=== PATIENT | female | born 1940 | race Caucasian/White ===

== ENCOUNTER 2016-09-03 16:28 | Inpatient (IN) | payer OTHER ==
[~2016-09-03] VITALS: Ht 165.1 cm; Wt 160.6 kg
[~2016-09-03 16:28] MED LIST: ALBU2.5V7 INH; LOVI40 SUBCUT
[2016-09-03] MEDS ORDERED: NACL 0.9% 1,000 ML IV SCH (16:39)
[2016-09-03 17:21] LABS: BASOPHILS # (AUTO) 0.2 K/uL (0.0-0.2); EOSINOPHILS % (AUTO) 0.1 % (0.0-4.0); HEMATOCRIT 43.8 % (36-48); HEMOGLOBIN 13.9 g/dL (12.0-16.0); LYMPHOCYTES # (AUTO) 1.3 K/uL (1.0-5.5); LYMPHOCYTES % (AUTO) 8.3 % (20.5-51.5); MEAN CORPUSCULAR HEMOGLOBIN 28 pg (27-31); MEAN CORPUSCULAR HGB CONC 32 % (32-36); MEAN CORPUSCULAR VOLUME 88 fL (79.0-98.0); MONOCYTES # (AUTO) 1.5 K/uL (0.0-1.0); MONOCYTES % (AUTO) 9.8 % (1.7-9.3); NEUTROPHILS # (AUTO) 12.2 K/uL (1.8-7.7); NEUTROPHILS % (AUTO) 80.8 % (40.0-70.0); PLATELET COUNT (AUTO) 245 K/uL (130-430); RED BLOOD CELL COUNT(AUTO) 4.99 MIL/uL (4.2-6.2); WHITE BLOOD COUNT (AUTO) 15.2 K/uL (4.8-10.8)
[2016-09-03 17:25] LABS: ANION GAP 4 (5-15); CALCIUM 9.2 mg/dL (8.4-11.0); CHLORIDE 105 mmol/L (98-107); CREATININE 0.99 mg/dL (0.55-1.30); GLUCOSE 112 mg/dL (70-99); POTASSIUM 4.3 mmol/L (3.5-5.1); SODIUM SERUM 141 mmol/L (136-145); UREA NITROGEN, BLOOD 24 mg/dL (8-21)
[2016-09-03 17:30] LABS: ALANINE AMINOTRANSFERASE 19 U/L (12-78); ALBUMIN 2.7 g/dL (3.4-4.8); ASPARTATE AMINOTRANSFERASE 21 U/L (10-37); INR 1.2 (0.8-1.2); PROTHROMBIN TIME 12.6 SECS (9.5-12.5); TOTAL BILIRUBIN 0.8 mg/dL (0.0-1.0); TOTAL PROTEIN, SERUM 6.9 g/dL (6.4-8.3)
[2016-09-03] MEDS ORDERED: cefTRIAXone 1 GM IVPB PREMIX 50 ML IV ONE (17:45)
[2016-09-03 18:29] LABS: BILIRUBIN,URINE NEGATIVE (NEGATIVE); BLOOD, URINE 3+ (NEGATIVE); COLOR,URINE YELLOW (YELLOW); GLUCOSE,URINE NEGATIVE (NEGATIVE); KETONES,URINE NEGATIVE (NEGATIVE); LEUKOCYTE ESTERASE ,URINE 3+ (NEGATIVE); NITRITE, URINE POSITIVE (NEGATIVE); PH,URINE 7.5 (5.0-8.0); PROTEIN URINE 2+ (NEGATIVE); UROBILINOGEN,URINE 0.2 (0.2-1.0)
[2016-09-03 18:37] LABS: CLARITY/URINE SLIGHTLY CLOUDY (CLEAR)
[2016-09-03 18:38] LABS: BACTERIA,URINE MODERATE /HPF (None Seen); MUCUS,URINE None Seen /LPF (None Seen); WBC,URINE >100 /HPF (0-3)
[2016-09-03] MEDS ORDERED: CARV6.2554 PO (19:16)
[2016-09-03 20:15] VITALS: BP_SYST 138
[2016-09-03] MEDS: 0.45% NACL 1,000 ML IV SCH (21:44)
[2016-09-03 22:30] VITALS: BP_SYST 135
[2016-09-03] MEDS ORDERED: ALBUTEROL SULFATE 0.083% 2.5 MG/3 ML VIAL.NEB INH PRN (23:00)
[2016-09-03] MEDS: ALBUTEROL SULFATE 0.083% 2.5 MG/3 ML VIAL.NEB INH SCH (23:17)
[2016-09-04 00:35] VITALS: BP_SYST 135
[2016-09-04 04:09] VITALS: BP_SYST 133
[2016-09-04 07:09] LABS: BASOPHILS # (AUTO) 0.2 K/uL (0.0-0.2); EOSINOPHILS % (AUTO) 0.2 % (0.0-4.0); HEMATOCRIT 37.8 % (36-48); HEMOGLOBIN 12.5 g/dL (12.0-16.0); LYMPHOCYTES # (AUTO) 1.6 K/uL (1.0-5.5); LYMPHOCYTES % (AUTO) 10.2 % (20.5-51.5); MEAN CORPUSCULAR HEMOGLOBIN 29 pg (27-31); MEAN CORPUSCULAR HGB CONC 33 % (32-36); MEAN CORPUSCULAR VOLUME 88 fL (79.0-98.0); MONOCYTES # (AUTO) 1.3 K/uL (0.0-1.0); MONOCYTES % (AUTO) 8.6 % (1.7-9.3); NEUTROPHILS # (AUTO) 12.2 K/uL (1.8-7.7); PLATELET COUNT (AUTO) 239 K/uL (130-430); RED BLOOD CELL COUNT(AUTO) 4.32 MIL/uL (4.2-6.2); RED CELL DISTRIBUTION WIDTH 16.2 % (9.0-15.0); WHITE BLOOD COUNT (AUTO) 15.4 K/uL (4.8-10.8)
[2016-09-04 07:29] LABS: ALANINE AMINOTRANSFERASE 20 U/L (12-78); ALBUMIN 2.5 g/dL (3.4-4.8); ANION GAP 8 (5-15); ASPARTATE AMINOTRANSFERASE 25 U/L (10-37); CALCIUM 8.2 mg/dL (8.4-11.0); CHLORIDE 104 mmol/L (98-107); CREATININE 0.83 mg/dL (0.55-1.30); GLUCOSE 102 mg/dL (70-99); SODIUM SERUM 140 mmol/L (136-145); TOTAL BILIRUBIN 0.8 mg/dL (0.0-1.0); TOTAL PROTEIN, SERUM 5.7 g/dL (6.4-8.3); UREA NITROGEN, BLOOD 21 mg/dL (8-21)
[2016-09-04] MEDS: ALBUTEROL SULFATE 0.083% 2.5 MG/3 ML VIAL.NEB INH SCH ×3 (07:39→23:03)
[2016-09-04 07:55] VITALS: BP_SYST 103
[2016-09-04] MEDS: ENOXAPARIN SODIUM 40 MG/0.4 ML SYRINGE SUBCUT SCH (08:16)
[2016-09-04] MEDS: cefTRIAXone 1 GM IVPB PREMIX 50 ML IV SCH (08:50)
[2016-09-04 12:29] VITALS: BP_SYST 116
[2016-09-04] MEDS: ACETAMINOPHEN 325 MG TABLET PO PRN (13:46)
[2016-09-04] MEDS: 0.45% NACL 1,000 ML IV SCH (17:38)
[2016-09-04 19:25] VITALS: BP_SYST 122
[2016-09-05 00:40] VITALS: BP_SYST 139
[2016-09-05 05:01] VITALS: BP_SYST 122
[2016-09-05 07:06] LABS: ANION GAP 1 (5-15); CALCIUM 8.8 mg/dL (8.4-11.0); CHLORIDE 105 mmol/L (98-107); CREATININE 0.89 mg/dL (0.55-1.30); GLUCOSE 117 mg/dL (70-99); POTASSIUM 4.6 mmol/L (3.5-5.1); SODIUM SERUM 140 mmol/L (136-145); UREA NITROGEN, BLOOD 18 mg/dL (8-21)
[2016-09-05 08:00] VITALS: BP_SYST 116
[2016-09-05 08:01] LABS: HEMATOCRIT 41.4 % (36-48); HEMOGLOBIN 13.6 g/dL (12.0-16.0); MEAN CORPUSCULAR HEMOGLOBIN 29 pg (27-31); MEAN CORPUSCULAR HGB CONC 33 % (32-36); MEAN CORPUSCULAR VOLUME 88 fL (79.0-98.0); PLATELET COUNT (AUTO) 276 K/uL (130-430); RED BLOOD CELL COUNT(AUTO) 4.69 MIL/uL (4.2-6.2); RED CELL DISTRIBUTION WIDTH 16.2 % (9.0-15.0)
[2016-09-05 08:13] LABS: WHITE BLOOD COUNT (AUTO) 14.4 K/uL (4.8-10.8)
[2016-09-05] MEDS: ALBUTEROL SULFATE 0.083% 2.5 MG/3 ML VIAL.NEB INH SCH ×3 (08:29→23:00)
[2016-09-05] MEDS: ENOXAPARIN SODIUM 40 MG/0.4 ML SYRINGE SUBCUT SCH (08:31)
[2016-09-05] MEDS: cefTRIAXone 1 GM IVPB PREMIX 50 ML IV SCH (08:33)
[2016-09-05] MEDS ORDERED: FUROSEMIDE 40 MG TABLET PO ONE (10:00)
[2016-09-05 10:40] LABS: ATYPICAL LYMPHOCYTES % 0 % (0-0); BAND % (MANUAL) 10 % (0-6); BASOPHILS % (MANUAL) 0 % (0-2); EOSINOPHILS % (MANUAL) 0 % (0-7); LYMPHOCYTES % (MANUAL) 14 % (20-46); MONOCYTES % (MANUAL) 6 % (0-11)
[2016-09-05] MEDS: CIPROFLOXACIN HCL 0.3% EYE DRP 2.5 ML DROPS OP SCH ×4 (12:10→23:00)
[2016-09-05 12:22] VITALS: BP_SYST 160
[2016-09-05 16:45] VITALS: BP_SYST 136
[2016-09-05 23:04] VITALS: BP_SYST 142
[2016-09-06] VITALS (7 sets, daily range): BP systolic 114–176
[2016-09-06] MEDS: CIPROFLOXACIN HCL 0.3% EYE DRP 2.5 ML DROPS OP SCH ×6 (03:00→23:40)
[2016-09-06 07:17] LABS: HEMATOCRIT 43.2 % (36-48); HEMOGLOBIN 13.9 g/dL (12.0-16.0); MEAN CORPUSCULAR HEMOGLOBIN 28 pg (27-31); MEAN CORPUSCULAR HGB CONC 32 % (32-36); MEAN CORPUSCULAR VOLUME 88 fL (79.0-98.0); PLATELET COUNT (AUTO) 298 K/uL (130-430); RED CELL DISTRIBUTION WIDTH 16.3 % (9.0-15.0); WHITE BLOOD COUNT (AUTO) 14.1 K/uL (4.8-10.8)
[2016-09-06 07:20] LABS: ANION GAP 4 (5-15); CALCIUM 8.9 mg/dL (8.4-11.0); CHLORIDE 101 mmol/L (98-107); GLUCOSE 120 mg/dL (70-99); POTASSIUM 3.7 mmol/L (3.5-5.1); SODIUM SERUM 140 mmol/L (136-145); UREA NITROGEN, BLOOD 17 mg/dL (8-21)
[2016-09-06] MEDS: ALBUTEROL SULFATE 0.083% 2.5 MG/3 ML VIAL.NEB INH SCH ×3 (07:20→23:22)
[2016-09-06] MEDS ORDERED: FUROSEMIDE 40 MG TABLET PO SCH (09:00)
[2016-09-06 09:35] LABS: BAND % (MANUAL) 4 % (0-6); LYMPHOCYTES % (MANUAL) 12 % (20-46)
[2016-09-06 09:36] LABS: ATYPICAL LYMPHOCYTES % 0 % (0-0); BASOPHILS % (MANUAL) 0 % (0-2); EOSINOPHILS % (MANUAL) 0 % (0-7); MONOCYTES % (MANUAL) 8 % (0-11)
[2016-09-06] MEDS: cefTRIAXone 1 GM IVPB PREMIX 50 ML IV SCH (09:57)
[2016-09-06] MEDS: ENOXAPARIN SODIUM 40 MG/0.4 ML SYRINGE SUBCUT SCH (09:58)
[2016-09-06] MEDS ORDERED: metroNIDAZOLE 500 MG TABLET PO SCH (11:15)
[2016-09-06] MEDS ORDERED: metroNIDAZOLE 500 MG TABLET PO ONE (11:15)
[2016-09-06] MEDS ORDERED: SULFAMETHOXAZOLE/TRIMETHOPR DS 1 TABLET PO ONE (11:30)
[2016-09-06] MEDS: metroNIDAZOLE 500 MG TABLET PO SCH ×2 (17:41→23:40)
[2016-09-06] MEDS: SULFAMETHOXAZOLE/TRIMETHOPR DS 1 TABLET PO SCH (20:54)
[2016-09-07 00:01] VITALS: BP_SYST 139
[2016-09-07] MEDS: CIPROFLOXACIN HCL 0.3% EYE DRP 2.5 ML DROPS OP SCH ×6 (02:42→22:13)
[2016-09-07 04:12] VITALS: BP_SYST 157
[2016-09-07] MEDS: metroNIDAZOLE 500 MG TABLET PO SCH ×3 (06:10→18:01)
[2016-09-07 07:00] LABS: ANION GAP 0 (5-15); CALCIUM 8.7 mg/dL (8.4-11.0); CHLORIDE 99 mmol/L (98-107); CREATININE 0.73 mg/dL (0.55-1.30); GLUCOSE 128 mg/dL (70-99); POTASSIUM 3.6 mmol/L (3.5-5.1); SODIUM SERUM 139 mmol/L (136-145); UREA NITROGEN, BLOOD 14 mg/dL (8-21)
[2016-09-07 07:05] LABS: BASOPHILS # (AUTO) 0.1 K/uL (0.0-0.2); BASOPHILS % (AUTO) 1.1 % (0.0-2.0); EOSINOPHILS # (AUTO) 0.1 K/uL (0.0-0.4); EOSINOPHILS % (AUTO) 0.7 % (0.0-4.0); HEMATOCRIT 43.8 % (36-48); HEMOGLOBIN 14.1 g/dL (12.0-16.0); LYMPHOCYTES % (AUTO) 15.3 % (20.5-51.5); MEAN CORPUSCULAR HEMOGLOBIN 29 pg (27-31); MEAN CORPUSCULAR HGB CONC 32 % (32-36); MEAN CORPUSCULAR VOLUME 89 fL (79.0-98.0); MONOCYTES % (AUTO) 7.6 % (1.7-9.3); NEUTROPHILS # (AUTO) 9.9 K/uL (1.8-7.7); NEUTROPHILS % (AUTO) 75.3 % (40.0-70.0); PLATELET COUNT (AUTO) 368 K/uL (130-430); RED BLOOD CELL COUNT(AUTO) 4.93 MIL/uL (4.2-6.2); RED CELL DISTRIBUTION WIDTH 16.2 % (9.0-15.0); WHITE BLOOD COUNT (AUTO) 13.1 K/uL (4.8-10.8)
[2016-09-07] MEDS: ALBUTEROL SULFATE 0.083% 2.5 MG/3 ML VIAL.NEB INH SCH ×3 (07:51→23:50)
[2016-09-07 08:15] VITALS: BP_SYST 130
[2016-09-07] MEDS: SULFAMETHOXAZOLE/TRIMETHOPR DS 1 TABLET PO SCH ×2 (08:50→22:11)
[2016-09-07] MEDS: ENOXAPARIN SODIUM 40 MG/0.4 ML SYRINGE SUBCUT SCH (08:50)
[2016-09-07] MEDS ORDERED: CARVEDILOL 6.25 MG TABLET (COREG) PO ONE (11:45)
[2016-09-07 12:00] VITALS: BP_SYST 120
[2016-09-07 16:00] VITALS: BP_SYST 131
[2016-09-07 19:15] VITALS: BP_SYST 135
[2016-09-07] MEDS: CARVEDILOL 6.25 MG TABLET (COREG) PO SCH (22:11)
[2016-09-08] VITALS (7 sets, daily range): BP systolic 106–137
[2016-09-08] MEDS: metroNIDAZOLE 500 MG TABLET PO SCH ×4 (00:10→18:42)
[2016-09-08] MEDS: CIPROFLOXACIN HCL 0.3% EYE DRP 2.5 ML DROPS OP SCH ×6 (03:13→23:00)
[2016-09-08 07:36] LABS: BASOPHILS # (AUTO) 0.1 K/uL (0.0-0.2); EOSINOPHILS # (AUTO) 0.2 K/uL (0.0-0.4); EOSINOPHILS % (AUTO) 1.7 % (0.0-4.0); HEMOGLOBIN 13.2 g/dL (12.0-16.0); LYMPHOCYTES # (AUTO) 1.9 K/uL (1.0-5.5); LYMPHOCYTES % (AUTO) 16.3 % (20.5-51.5); MEAN CORPUSCULAR HEMOGLOBIN 28 pg (27-31); MEAN CORPUSCULAR HGB CONC 32 % (32-36); MEAN CORPUSCULAR VOLUME 88 fL (79.0-98.0); MONOCYTES % (AUTO) 8.9 % (1.7-9.3); NEUTROPHILS # (AUTO) 8.3 K/uL (1.8-7.7); NEUTROPHILS % (AUTO) 72.1 % (40.0-70.0); PLATELET COUNT (AUTO) 313 K/uL (130-430); RED BLOOD CELL COUNT(AUTO) 4.65 MIL/uL (4.2-6.2); WHITE BLOOD COUNT (AUTO) 11.5 K/uL (4.8-10.8)
[2016-09-08 07:41] LABS: CALCIUM 8.9 mg/dL (8.4-11.0); CREATININE 0.79 mg/dL (0.55-1.30); GLUCOSE 107 mg/dL (70-99); UREA NITROGEN, BLOOD 15 mg/dL (8-21)
[2016-09-08 08:07] LABS: CHLORIDE 101 mmol/L (98-107); POTASSIUM 3.4 mmol/L (3.5-5.1); SODIUM SERUM 139 mmol/L (136-145)
[2016-09-08 08:08] LABS: ANION GAP < 3 (5-15)
[2016-09-08] MEDS: ALBUTEROL SULFATE 0.083% 2.5 MG/3 ML VIAL.NEB INH SCH (08:08)
[2016-09-08] MEDS: ENOXAPARIN SODIUM 40 MG/0.4 ML SYRINGE SUBCUT SCH (09:41)
[2016-09-08] MEDS: SULFAMETHOXAZOLE/TRIMETHOPR DS 1 TABLET PO SCH ×2 (09:42→20:53)
[2016-09-08] MEDS: CARVEDILOL 6.25 MG TABLET (COREG) PO SCH ×2 (09:43→20:56)
[2016-09-08] MEDS: IPRATROPIUM/ALBUTEROL SULFATE 3 ML AMPUL.NEB INH SCH ×2 (15:47→23:00)
[2016-09-09] MEDS: IPRATROPIUM/ALBUTEROL SULFATE 3 ML AMPUL.NEB INH SCH ×3 (00:13→21:32)
[2016-09-09] MEDS: metroNIDAZOLE 500 MG TABLET PO SCH ×4 (00:14→17:59)
[2016-09-09] MEDS: CIPROFLOXACIN HCL 0.3% EYE DRP 2.5 ML DROPS OP SCH ×6 (02:38→23:41)
[2016-09-09 04:10] VITALS: BP_SYST 137
[2016-09-09 07:07] LABS: BASOPHILS # (AUTO) 0.1 K/uL (0.0-0.2); BASOPHILS % (AUTO) 1.1 % (0.0-2.0); EOSINOPHILS # (AUTO) 0.1 K/uL (0.0-0.4); HEMATOCRIT 43.8 % (36-48); HEMOGLOBIN 13.7 g/dL (12.0-16.0); LYMPHOCYTES # (AUTO) 1.5 K/uL (1.0-5.5); MEAN CORPUSCULAR HEMOGLOBIN 28 pg (27-31); MEAN CORPUSCULAR HGB CONC 31 % (32-36); MEAN CORPUSCULAR VOLUME 89 fL (79.0-98.0); MONOCYTES # (AUTO) 0.8 K/uL (0.0-1.0); MONOCYTES % (AUTO) 7.6 % (1.7-9.3); NEUTROPHILS # (AUTO) 7.8 K/uL (1.8-7.7); NEUTROPHILS % (AUTO) 75.3 % (40.0-70.0); PLATELET COUNT (AUTO) 319 K/uL (130-430); RED CELL DISTRIBUTION WIDTH 16.2 % (9.0-15.0); WHITE BLOOD COUNT (AUTO) 10.3 K/uL (4.8-10.8)
[2016-09-09 07:30] LABS: ALBUMIN 2.3 g/dL (3.4-4.8); ASPARTATE AMINOTRANSFERASE 26 U/L (10-37); CHLORIDE 100 mmol/L (98-107); CREATININE 1.33 mg/dL (0.55-1.30); POTASSIUM 4.6 mmol/L (3.5-5.1); SODIUM SERUM 139 mmol/L (136-145); TOTAL BILIRUBIN 1.8 mg/dL (0.0-1.0)
[2016-09-09 08:00] VITALS: BP_SYST 119
[2016-09-09 08:38] LABS: CALCIUM 9.2 mg/dL (8.4-11.0); GLUCOSE 118 mg/dL (70-99); UREA NITROGEN, BLOOD 16 mg/dL (8-21)
[2016-09-09 08:40] LABS: ANION GAP < 3 (5-15)
[2016-09-09 09:28] LABS: ALANINE AMINOTRANSFERASE 21 U/L (12-78); TOTAL PROTEIN, SERUM 6.2 g/dL (6.4-8.3)
[2016-09-09] MEDS: ENOXAPARIN SODIUM 40 MG/0.4 ML SYRINGE SUBCUT SCH (09:35)
[2016-09-09] MEDS: CARVEDILOL 6.25 MG TABLET (COREG) PO SCH ×2 (09:36→20:06)
[2016-09-09] MEDS: SULFAMETHOXAZOLE/TRIMETHOPR DS 1 TABLET PO SCH ×2 (09:36→20:06)
[2016-09-09 11:29] VITALS: BP_SYST 125
[2016-09-09 12:25] VITALS: BP_SYST 125
[2016-09-09 15:26] VITALS: BP_SYST 124
[2016-09-09 20:00] VITALS: BP_SYST 138
[2016-09-10] MEDS: metroNIDAZOLE 500 MG TABLET PO SCH ×5 (00:07→23:15)
[2016-09-10 00:30] VITALS: BP_SYST 124
[2016-09-10] MEDS: IPRATROPIUM/ALBUTEROL SULFATE 3 ML AMPUL.NEB INH SCH ×4 (01:22→19:50)
[2016-09-10] MEDS: CIPROFLOXACIN HCL 0.3% EYE DRP 2.5 ML DROPS OP SCH ×6 (03:27→23:16)
[2016-09-10 04:00] VITALS: BP_SYST 126; BP_SYST 173
[2016-09-10 07:35] LABS: EOSINOPHILS # (AUTO) 0.1 K/uL (0.0-0.4); EOSINOPHILS % (AUTO) 1.2 % (0.0-4.0); HEMATOCRIT 44.3 % (36-48); HEMOGLOBIN 13.9 g/dL (12.0-16.0); LYMPHOCYTES # (AUTO) 1.4 K/uL (1.0-5.5); LYMPHOCYTES % (AUTO) 16.3 % (20.5-51.5); MEAN CORPUSCULAR HEMOGLOBIN 28 pg (27-31); MEAN CORPUSCULAR HGB CONC 31 % (32-36); MEAN CORPUSCULAR VOLUME 89 fL (79.0-98.0); MONOCYTES # (AUTO) 0.6 K/uL (0.0-1.0); NEUTROPHILS # (AUTO) 6.7 K/uL (1.8-7.7); NEUTROPHILS % (AUTO) 75.5 % (40.0-70.0); PLATELET COUNT (AUTO) 298 K/uL (130-430); RED BLOOD CELL COUNT(AUTO) 4.98 MIL/uL (4.2-6.2); RED CELL DISTRIBUTION WIDTH 16.5 % (9.0-15.0); WHITE BLOOD COUNT (AUTO) 8.8 K/uL (4.8-10.8)
[2016-09-10 08:02] LABS: CALCIUM 9.1 mg/dL (8.4-11.0); CHLORIDE 102 mmol/L (98-107); CREATININE 0.88 mg/dL (0.55-1.30); GLUCOSE 113 mg/dL (70-99); POTASSIUM 4.5 mmol/L (3.5-5.1); SODIUM SERUM 140 mmol/L (136-145)
[2016-09-10 08:09] VITALS: BP_SYST 122
[2016-09-10 09:09] LABS: UREA NITROGEN, BLOOD 17 mg/dL (8-21)
[2016-09-10 09:35] LABS: ANION GAP < 3 (5-15)
[2016-09-10] MEDS: SULFAMETHOXAZOLE/TRIMETHOPR DS 1 TABLET PO SCH ×2 (09:55→21:08)
[2016-09-10] MEDS: ENOXAPARIN SODIUM 40 MG/0.4 ML SYRINGE SUBCUT SCH (09:55)
[2016-09-10] MEDS: CARVEDILOL 6.25 MG TABLET (COREG) PO SCH ×2 (09:56→21:09)
[2016-09-10 12:00] VITALS: BP_SYST 124
[2016-09-10 15:32] VITALS: BP_SYST 133
[2016-09-10 20:00] VITALS: BP_SYST 144
[2016-09-11] VITALS (7 sets, daily range): BP systolic 100–145
[2016-09-11] MEDS: IPRATROPIUM/ALBUTEROL SULFATE 3 ML AMPUL.NEB INH SCH ×4 (01:09→19:10)
[2016-09-11] MEDS: CIPROFLOXACIN HCL 0.3% EYE DRP 2.5 ML DROPS OP SCH ×6 (03:45→23:35)
[2016-09-11] MEDS: metroNIDAZOLE 500 MG TABLET PO SCH ×4 (06:02→23:35)
[2016-09-11 06:32] LABS: BASOPHILS % (AUTO) 0.4 % (0.0-2.0); EOSINOPHILS # (AUTO) 0.1 K/uL (0.0-0.4); EOSINOPHILS % (AUTO) 0.7 % (0.0-4.0); HEMATOCRIT 43.1 % (36-48); HEMOGLOBIN 13.8 g/dL (12.0-16.0); LYMPHOCYTES # (AUTO) 1.6 K/uL (1.0-5.5); LYMPHOCYTES % (AUTO) 15.8 % (20.5-51.5); MEAN CORPUSCULAR HEMOGLOBIN 29 pg (27-31); MEAN CORPUSCULAR HGB CONC 32 % (32-36); MEAN CORPUSCULAR VOLUME 89 fL (79.0-98.0); MONOCYTES # (AUTO) 0.7 K/uL (0.0-1.0); MONOCYTES % (AUTO) 6.9 % (1.7-9.3); NEUTROPHILS % (AUTO) 76.2 % (40.0-70.0); PLATELET COUNT (AUTO) 293 K/uL (130-430); RED BLOOD CELL COUNT(AUTO) 4.82 MIL/uL (4.2-6.2); RED CELL DISTRIBUTION WIDTH 16.5 % (9.0-15.0); WHITE BLOOD COUNT (AUTO) 10.4 K/uL (4.8-10.8)
[2016-09-11 06:58] LABS: ALANINE AMINOTRANSFERASE 34 U/L (12-78); ALBUMIN 2.4 g/dL (3.4-4.8); ASPARTATE AMINOTRANSFERASE 47 U/L (10-37); CALCIUM 8.9 mg/dL (8.4-11.0); CHLORIDE 102 mmol/L (98-107); CREATININE 0.88 mg/dL (0.55-1.30); GLUCOSE 125 mg/dL (70-99); POTASSIUM 3.7 mmol/L (3.5-5.1); SODIUM SERUM 140 mmol/L (136-145); TOTAL BILIRUBIN 0.4 mg/dL (0.0-1.0); TOTAL PROTEIN, SERUM 6.2 g/dL (6.4-8.3); UREA NITROGEN, BLOOD 17 mg/dL (8-21)
[2016-09-11 07:21] LABS: ANION GAP -3 (5-15)
[2016-09-11] MEDS: ENOXAPARIN SODIUM 40 MG/0.4 ML SYRINGE SUBCUT SCH (08:49)
[2016-09-11] MEDS: CARVEDILOL 6.25 MG TABLET (COREG) PO SCH ×2 (08:50→22:45)
[2016-09-11] MEDS: SULFAMETHOXAZOLE/TRIMETHOPR DS 1 TABLET PO SCH ×2 (08:50→22:44)
[2016-09-11 17:26] LABS: BILIRUBIN,URINE NEGATIVE (NEGATIVE); BLOOD, URINE 2+ (NEGATIVE); CLARITY/URINE CLEAR (CLEAR); COLOR,URINE YELLOW (YELLOW); GLUCOSE,URINE NEGATIVE (NEGATIVE); KETONES,URINE NEGATIVE (NEGATIVE); LEUKOCYTE ESTERASE ,URINE 1+ (NEGATIVE); NITRITE, URINE NEGATIVE (NEGATIVE); PH,URINE 6.5 (5.0-8.0); PROTEIN URINE NEGATIVE (NEGATIVE); UROBILINOGEN,URINE 0.2 (0.2-1.0)
[2016-09-11 17:36] LABS: BACTERIA,URINE FEW /HPF (None Seen); MUCUS,URINE None Seen /LPF (None Seen); RBC,URINE 0-3 /HPF (0-3)
[2016-09-11] MEDS: ACETAMINOPHEN 325 MG TABLET PO PRN (22:44)
[2016-09-12] MEDS: IPRATROPIUM/ALBUTEROL SULFATE 3 ML AMPUL.NEB INH SCH ×4 (01:20→19:00)
[2016-09-12] MEDS: CIPROFLOXACIN HCL 0.3% EYE DRP 2.5 ML DROPS OP SCH ×6 (03:51→23:15)
[2016-09-12 04:32] VITALS: BP_SYST 109
[2016-09-12] MEDS: metroNIDAZOLE 500 MG TABLET PO SCH ×4 (06:13→23:43)
[2016-09-12] MEDS: CARVEDILOL 6.25 MG TABLET (COREG) PO SCH ×2 (08:25→20:47)
[2016-09-12] MEDS: SULFAMETHOXAZOLE/TRIMETHOPR DS 1 TABLET PO SCH ×2 (08:25→20:47)
[2016-09-12] MEDS: ENOXAPARIN SODIUM 40 MG/0.4 ML SYRINGE SUBCUT SCH (08:25)
[2016-09-12 12:40] VITALS: BP_SYST 122
[2016-09-12] MEDS: ACETAMINOPHEN 325 MG TABLET PO PRN ×2 (12:50→23:44)
[2016-09-12 13:50] VITALS: BP_SYST 122
[2016-09-12 16:57] VITALS: BP_SYST 128
[2016-09-12 19:59] VITALS: BP_SYST 113
[2016-09-13] VITALS: BP_SYST 116
[2016-09-13] MEDS: IPRATROPIUM/ALBUTEROL SULFATE 3 ML AMPUL.NEB INH SCH ×3 (00:11→18:29)
[2016-09-13] MEDS: CIPROFLOXACIN HCL 0.3% EYE DRP 2.5 ML DROPS OP SCH ×4 (03:48→15:12)
[2016-09-13 04:00] VITALS: BP_SYST 117
[2016-09-13 06:29] LABS: CALCIUM 8.6 mg/dL (8.4-11.0); CHLORIDE 104 mmol/L (98-107); CREATININE 0.91 mg/dL (0.55-1.30); GLUCOSE 123 mg/dL (70-99); POTASSIUM 3.7 mmol/L (3.5-5.1); SODIUM SERUM 140 mmol/L (136-145); UREA NITROGEN, BLOOD 18 mg/dL (8-21)
[2016-09-13 06:46] LABS: BASOPHILS # (AUTO) 0.1 K/uL (0.0-0.2); BASOPHILS % (AUTO) 0.6 % (0.0-2.0); EOSINOPHILS # (AUTO) 0.1 K/uL (0.0-0.4); EOSINOPHILS % (AUTO) 1.1 % (0.0-4.0); HEMATOCRIT 40.1 % (36-48); HEMOGLOBIN 13.3 g/dL (12.0-16.0); LYMPHOCYTES # (AUTO) 1.9 K/uL (1.0-5.5); LYMPHOCYTES % (AUTO) 16.1 % (20.5-51.5); MEAN CORPUSCULAR HEMOGLOBIN 29 pg (27-31); MEAN CORPUSCULAR HGB CONC 33 % (32-36); MEAN CORPUSCULAR VOLUME 88 fL (79.0-98.0); MONOCYTES # (AUTO) 0.6 K/uL (0.0-1.0); NEUTROPHILS # (AUTO) 9.4 K/uL (1.8-7.7); NEUTROPHILS % (AUTO) 77.2 % (40.0-70.0); PLATELET COUNT (AUTO) 362 K/uL (130-430); RED BLOOD CELL COUNT(AUTO) 4.55 MIL/uL (4.2-6.2); WHITE BLOOD COUNT (AUTO) 12.1 K/uL (4.8-10.8)
[2016-09-13 07:24] LABS: ANION GAP < 2 (5-15)
[2016-09-13 08:00] VITALS: BP_SYST 121
[2016-09-13] MEDS: CARVEDILOL 6.25 MG TABLET (COREG) PO SCH (09:23)
[2016-09-13] MEDS: ENOXAPARIN SODIUM 40 MG/0.4 ML SYRINGE SUBCUT SCH (09:24)
[2016-09-13] MEDS ORDERED: METR500T PO (10:46)
[2016-09-13] MEDS ORDERED: RIVA20TA PO (10:47)
[2016-09-13 12:40] VITALS: BP_SYST 103
[2016-09-13 14:30] VITALS: BP_SYST 117
[2016-09-13 15:41] VITALS: BP_SYST 120
== END 2016-09-13 16:30 | disposition home or self-care (01) | DRG 372 ==
LOC: SED 16:28 → STU 19:17 → SMU 09-07 11:29 → STU 09-07 12:15 → SMU 09-07 18:11
PROVIDERS: ADMIT Internal Medicine; ATTEND Internal Medicine
PROC: 5A09357 Assistance with Respiratory Ventilation, Less than 24 Consecutive Hours, Continuous Positive Airway Pressure (ICD-10-PCS; principal; 2016-09-09)
DX: A04.7 Enterocolitis due to Clostridium difficile (principal); N39.0 Urinary tract infection, site not specified; E44.1 Mild protein-calorie malnutrition; Z68.43 Body mass index [BMI] 50.0-59.9, adult; I27.2 Other secondary pulmonary hypertension; E66.01 Morbid (severe) obesity due to excess calories; I11.0 Hypertensive heart disease with heart failure; I50.9 Heart failure, unspecified; I48.2 Chronic atrial fibrillation; G47.33 Obstructive sleep apnea (adult) (pediatric); J44.9 Chronic obstructive pulmonary disease, unspecified; Z66 Do not resuscitate; Z79.899 Other long term (current) drug therapy; Z85.820 Personal history of malignant melanoma of skin; Z85.038 Personal history of other malignant neoplasm of large intestine
CPT/HCPCS: 36415; 71010; 80048; 80053; 81000-TC; 83605; 83880; 84484; 85007; 85025; 85027; 85610-TC; 85730-TC; 87040-TC; 87086; 87186-TC; 87230-TC; 93005; 94640; 94660; 94760; 96365; 97110-GP; 97116-GP; 97530-GP; 99285; J0696; J1650; J7030; J7040

== ENCOUNTER 2016-09-28 01:01 | Inpatient (IN) | payer OTHER ==
[~2016-09-28] VITALS: Ht 165.1 cm; Wt 158.8 kg
[2016-09-28] VITALS (8 sets, daily range): BP systolic 123–160
[~2016-09-28 01:01] MED LIST changes: +CARV6.2554 PO; -LOVI40 SUBCUT; +METR500T PO; +RIVA20TA PO
[2016-09-28] MEDS ORDERED: LIDOCAINE 1%, 20 ML MDV 20 ML ONE (01:23)
[2016-09-28] MEDS ORDERED: LIDOCAINE PF 1% 30ML(POUR BTL) INJ ONE (01:45)
[2016-09-28] MEDS ORDERED: HYDROmorphone 1 MG INJ. 1 MG/ML AMPUL IM ONE (02:15)
[2016-09-28] MEDS ORDERED: HYDROmorphone 1 MG INJ. 1 MG/ML AMPUL IVP ONE (02:15)
[2016-09-28] MEDS ORDERED: NACL 0.9% 1,000 ML IV ONE (04:40)
[2016-09-28] MEDS ORDERED: ACETAMINOPHEN 325 MG TABLET PO PRN (04:45)
[2016-09-28] MEDS ORDERED: ONDANSETRON HCL 4 MG/2 ML VIAL IVP PRN (04:45)
[2016-09-28] MEDS ORDERED: ALBUTEROL SULFATE 0.083% 2.5 MG/3 ML VIAL.NEB INH PRN (04:45)
[2016-09-28] MEDS ORDERED: *LOVENOX 1MG/KG Q24H/PHARMACY XX ONE (05:00)
[2016-09-28 05:52] LABS: BILIRUBIN,URINE 1+ (NEGATIVE); BLOOD, URINE 3+ (NEGATIVE); CLARITY/URINE CLOUDY (CLEAR); COLOR,URINE YELLOW (YELLOW); GLUCOSE,URINE NEGATIVE (NEGATIVE); KETONES,URINE NEGATIVE (NEGATIVE); LEUKOCYTE ESTERASE ,URINE 1+ (NEGATIVE); NITRITE, URINE NEGATIVE (NEGATIVE); PH,URINE 5.5 (5.0-8.0); PROTEIN URINE 1+ (NEGATIVE); UROBILINOGEN,URINE 0.2 (0.2-1.0)
[2016-09-28 06:11] LABS: BACTERIA,URINE MODERATE /HPF (None Seen); RBC,URINE >100 /HPF (0-3); WBC,URINE 20-50 /HPF (0-3)
[2016-09-28 06:12] LABS: MUCUS,URINE None Seen /LPF (None Seen); URINE AMORPHOUS URATE 2+ /HPF (None Seen)
[2016-09-28 06:28] LABS: EOSINOPHILS # (AUTO) 0.1 K/uL (0.0-0.4); MONOCYTES # (AUTO) 0.8 K/uL (0.0-1.0); NEUTROPHILS # (AUTO) 6.9 K/uL (1.8-7.7)
[2016-09-28 06:37] LABS: ANION GAP 2 (5-15); CALCIUM 8.6 mg/dL (8.4-11.0); CHLORIDE 107 mmol/L (98-107); CREATININE 0.75 mg/dL (0.55-1.30); GLUCOSE 121 mg/dL (70-99); POTASSIUM 4.2 mmol/L (3.5-5.1); SODIUM SERUM 141 mmol/L (136-145); UREA NITROGEN, BLOOD 14 mg/dL (8-21)
[2016-09-28 06:42] LABS: ALANINE AMINOTRANSFERASE 18 U/L (12-78); ASPARTATE AMINOTRANSFERASE 21 U/L (10-37); CREATINE KINASE, TOTAL 49 U/L (26-192); TOTAL BILIRUBIN 0.7 mg/dL (0.0-1.0); TOTAL PROTEIN, SERUM 6.3 g/dL (6.4-8.3)
[2016-09-28 06:44] LABS: PROTHROMBIN TIME 11.3 SECS (9.5-12.5)
[2016-09-28 06:46] LABS: BASOPHILS # (AUTO) 0.4 K/uL (0.0-0.2); BASOPHILS % (AUTO) 4.6 % (0.0-2.0); HEMATOCRIT 40.8 % (36-48); HEMOGLOBIN 13.7 g/dL (12.0-16.0); LYMPHOCYTES # (AUTO) 1.5 K/uL (1.0-5.5); LYMPHOCYTES % (AUTO) 15.4 % (20.5-51.5); MEAN CORPUSCULAR HEMOGLOBIN 30 pg (27-31); MEAN CORPUSCULAR HGB CONC 34 % (32-36); MEAN CORPUSCULAR VOLUME 90 fL (79.0-98.0); RED BLOOD CELL COUNT(AUTO) 4.52 MIL/uL (4.2-6.2); RED CELL DISTRIBUTION WIDTH 21.6 % (9.0-15.0); WHITE BLOOD COUNT (AUTO) 9.7 K/uL (4.8-10.8)
[2016-09-28] MEDS: HYDROcodone/ACETAMIN 10-325 MG TAB PO PRN ×3 (07:58→20:29)
[2016-09-28 08:11] LABS: PLATELET COUNT (AUTO) 348 K/uL (130-430)
[2016-09-28] MEDS: RIVAROXABAN 10 MG TABLET PO SCH (09:53)
[2016-09-28] MEDS: cefTRIAXone 1 GM in D5W 50 ML IV SCH (10:46)
[2016-09-28 11:09] LABS: ABG TOTAL HEMOGLOBIN 14.5 G/dL (12.0-18.0); BLOOD GAS BASE EXCESS 3.8 mmol/L (-3.0-3.0); BLOOD GAS PH 7.355 (7.350-7.450); BLOOD O2Hb% 95.6 % (94.0-97.0)
[2016-09-28 11:10] LABS: BLOOD GAS COHb% 1.5 % (0.5-1.5); BLOOD GAS HHB 2.7 % (0.0-6.0)
[2016-09-28 12:22] LABS: BLOOD GAS PH 7.368 (7.350-7.450)
[2016-09-28 12:23] LABS: ABG TOTAL HEMOGLOBIN 15.1 G/dL (12.0-18.0); BLOOD GAS COHb% 1.6 % (0.5-1.5); BLOOD GAS HHB 8.7 % (0.0-6.0); BLOOD O2Hb% 89.1 % (94.0-97.0)
[2016-09-28] MEDS: NORMAL SALINE 5 ML DISP.SYRIN IVF SCH ×2 (15:09→20:26)
[2016-09-28] MEDS: CARVEDILOL 6.25 MG TABLET (COREG) PO SCH (20:26)
[2016-09-28] MEDS ORDERED: CARVEDILOL 6.25 MG TABLET (COREG) PO SCH (21:00)
[2016-09-29] MEDS: HYDROcodone/ACETAMIN 10-325 MG TAB PO PRN ×3 (02:28→22:00)
[2016-09-29 04:36] VITALS: BP_SYST 134
[2016-09-29] MEDS: NORMAL SALINE 5 ML DISP.SYRIN IVF SCH ×3 (05:27→21:53)
[2016-09-29 06:36] LABS: BASOPHILS % (AUTO) 0.2 % (0.0-2.0); EOSINOPHILS # (AUTO) 0.1 K/uL (0.0-0.4); EOSINOPHILS % (AUTO) 1.4 % (0.0-4.0); HEMATOCRIT 38.7 % (36-48); HEMOGLOBIN 12.7 g/dL (12.0-16.0); LYMPHOCYTES # (AUTO) 2.5 K/uL (1.0-5.5); LYMPHOCYTES % (AUTO) 25.5 % (20.5-51.5); MEAN CORPUSCULAR HEMOGLOBIN 30 pg (27-31); MEAN CORPUSCULAR HGB CONC 33 % (32-36); MEAN CORPUSCULAR VOLUME 91 fL (79.0-98.0); MONOCYTES # (AUTO) 1.5 K/uL (0.0-1.0); MONOCYTES % (AUTO) 15.1 % (1.7-9.3); NEUTROPHILS # (AUTO) 5.5 K/uL (1.8-7.7); NEUTROPHILS % (AUTO) 57.8 % (40.0-70.0); PLATELET COUNT (AUTO) 189 K/uL (130-430); RED BLOOD CELL COUNT(AUTO) 4.25 MIL/uL (4.2-6.2); RED CELL DISTRIBUTION WIDTH 21.6 % (9.0-15.0); WHITE BLOOD COUNT (AUTO) 9.6 K/uL (4.8-10.8)
[2016-09-29 06:59] LABS: CALCIUM 8.1 mg/dL (8.4-11.0); CHLORIDE 106 mmol/L (98-107); CREATININE 0.83 mg/dL (0.55-1.30); GLUCOSE 102 mg/dL (70-99); POTASSIUM 4.5 mmol/L (3.5-5.1); SODIUM SERUM 139 mmol/L (136-145); UREA NITROGEN, BLOOD 13 mg/dL (8-21)
[2016-09-29 07:04] LABS: ANION GAP < 3 (5-15)
[2016-09-29 08:00] VITALS: BP_SYST 121
[2016-09-29] MEDS: RIVAROXABAN 10 MG TABLET PO SCH (09:13)
[2016-09-29] MEDS: CARVEDILOL 6.25 MG TABLET (COREG) PO SCH ×2 (09:13→21:52)
[2016-09-29] MEDS: cefTRIAXone 1 GM in D5W 50 ML IV SCH (09:14)
[2016-09-29 12:44] VITALS: BP_SYST 112
[2016-09-29 16:29] VITALS: BP_SYST 105
[2016-09-30] VITALS: BP_SYST 108
[2016-09-30 04:05] VITALS: BP_SYST 116
[2016-09-30] MEDS: NORMAL SALINE 5 ML DISP.SYRIN IVF SCH ×3 (05:26→22:31)
[2016-09-30 07:29] LABS: EOSINOPHILS # (AUTO) 0.1 K/uL (0.0-0.4); LYMPHOCYTES # (AUTO) 1.5 K/uL (1.0-5.5); MEAN CORPUSCULAR HEMOGLOBIN 29 pg (27-31); MEAN CORPUSCULAR HGB CONC 32 % (32-36); MEAN CORPUSCULAR VOLUME 91 fL (79.0-98.0); NEUTROPHILS % (AUTO) 64.9 % (40.0-70.0)
[2016-09-30 07:32] LABS: CALCIUM 8.2 mg/dL (8.4-11.0); CHLORIDE 104 mmol/L (98-107); CREATININE 0.77 mg/dL (0.55-1.30); GLUCOSE 106 mg/dL (70-99); POTASSIUM 4.4 mmol/L (3.5-5.1); SODIUM SERUM 139 mmol/L (136-145); UREA NITROGEN, BLOOD 12 mg/dL (8-21)
[2016-09-30 08:00] VITALS: BP_SYST 117
[2016-09-30 08:04] LABS: EOSINOPHILS % (AUTO) 1.5 % (0.0-4.0); HEMATOCRIT 38.4 % (36-48); HEMOGLOBIN 12.4 g/dL (12.0-16.0); MONOCYTES % (AUTO) 11.4 % (1.7-9.3); PLATELET COUNT (AUTO) 176 K/uL (130-430); RED BLOOD CELL COUNT(AUTO) 4.22 MIL/uL (4.2-6.2); RED CELL DISTRIBUTION WIDTH 21.6 % (9.0-15.0); WHITE BLOOD COUNT (AUTO) 6.6 K/uL (4.8-10.8)
[2016-09-30 08:05] LABS: BASOPHILS % (AUTO) 0.2 % (0.0-2.0); MONOCYTES # (AUTO) 0.8 K/uL (0.0-1.0); NEUTROPHILS # (AUTO) 4.2 K/uL (1.8-7.7)
[2016-09-30 08:16] LABS: ANION GAP < 3 (5-15)
[2016-09-30] MEDS: cefTRIAXone 1 GM in D5W 50 ML IV SCH (08:29)
[2016-09-30] MEDS: CARVEDILOL 6.25 MG TABLET (COREG) PO SCH ×2 (08:30→22:30)
[2016-09-30] MEDS: RIVAROXABAN 10 MG TABLET PO SCH (08:30)
[2016-09-30] MEDS: HYDROcodone/ACETAMIN 10-325 MG TAB PO PRN ×3 (08:32→22:30)
[2016-09-30 10:26] LABS: BLOOD GAS PH 7.394 (7.350-7.450)
[2016-09-30 10:27] LABS: ABG TOTAL HEMOGLOBIN 13.5 G/dL (12.0-18.0); BLOOD GAS BASE EXCESS 3.9 mmol/L (-3.0-3.0); BLOOD GAS COHb% 1.5 % (0.5-1.5); BLOOD GAS HHB 14.8 % (0.0-6.0); BLOOD O2Hb% 83.4 % (94.0-97.0)
[2016-09-30 11:34] VITALS: BP_SYST 114
[2016-09-30 15:24] VITALS: BP_SYST 116
[2016-09-30 16:12] LABS: BLOOD GAS PH 7.421 (7.350-7.450)
[2016-09-30 16:13] LABS: ABG TOTAL HEMOGLOBIN 13.8 G/dL (12.0-18.0); BLOOD GAS BASE EXCESS 7.7 mmol/L (-3.0-3.0); BLOOD GAS COHb% 1.4 % (0.5-1.5); BLOOD O2Hb% 81.3 % (94.0-97.0)
[2016-09-30 19:05] VITALS: BP_SYST 102
[2016-10-01] VITALS (7 sets, daily range): BP systolic 115–138
[2016-10-01] MEDS: HYDROcodone/ACETAMIN 10-325 MG TAB PO PRN ×3 (02:23→20:39)
[2016-10-01] MEDS: NORMAL SALINE 5 ML DISP.SYRIN IVF SCH ×2 (05:58→13:20)
[2016-10-01 07:51] LABS: BASOPHILS % (AUTO) 0.2 % (0.0-2.0); EOSINOPHILS # (AUTO) 0.1 K/uL (0.0-0.4); HEMATOCRIT 37.8 % (36-48); HEMOGLOBIN 12.3 g/dL (12.0-16.0); LYMPHOCYTES # (AUTO) 1.8 K/uL (1.0-5.5); LYMPHOCYTES % (AUTO) 25.3 % (20.5-51.5); MEAN CORPUSCULAR HEMOGLOBIN 30 pg (27-31); MEAN CORPUSCULAR HGB CONC 33 % (32-36); MEAN CORPUSCULAR VOLUME 92 fL (79.0-98.0); MONOCYTES # (AUTO) 0.6 K/uL (0.0-1.0); MONOCYTES % (AUTO) 8.5 % (1.7-9.3); NEUTROPHILS # (AUTO) 4.6 K/uL (1.8-7.7); PLATELET COUNT (AUTO) 164 K/uL (130-430); RED BLOOD CELL COUNT(AUTO) 4.13 MIL/uL (4.2-6.2); RED CELL DISTRIBUTION WIDTH 21.5 % (9.0-15.0); WHITE BLOOD COUNT (AUTO) 7.1 K/uL (4.8-10.8)
[2016-10-01 08:33] LABS: CALCIUM 8.3 mg/dL (8.4-11.0); CHLORIDE 103 mmol/L (98-107); CREATININE 0.86 mg/dL (0.55-1.30); GLUCOSE 138 mg/dL (70-99); POTASSIUM 4.2 mmol/L (3.5-5.1); SODIUM SERUM 139 mmol/L (136-145); UREA NITROGEN, BLOOD 14 mg/dL (8-21)
[2016-10-01 08:34] LABS: ANION GAP < 3 (5-15)
[2016-10-01] MEDS: RIVAROXABAN 10 MG TABLET PO SCH (08:43)
[2016-10-01] MEDS: cefTRIAXone 1 GM in D5W 50 ML IV SCH (08:43)
[2016-10-01] MEDS: CARVEDILOL 6.25 MG TABLET (COREG) PO SCH (08:44)
== END 2016-10-01 20:55 | DRG 602 ==
LOC: SED 01:01 → SMU 04:39 → OBSVTOIN 12:18
PROVIDERS: ADMIT Internal Medicine; ATTEND Internal Medicine
PROC: 0HQLXZZ Repair Left Lower Leg Skin, External Approach (ICD-10-PCS; principal; 2016-09-28)
PROC: 5A09357 Assistance with Respiratory Ventilation, Less than 24 Consecutive Hours, Continuous Positive Airway Pressure (ICD-10-PCS; 2016-09-30)
DX: L03.115 Cellulitis of right lower limb (principal); J96.20 Acute and chronic respiratory failure, unspecified whether with hypoxia or hypercapnia; N39.0 Urinary tract infection, site not specified; Z68.43 Body mass index [BMI] 50.0-59.9, adult; L97.919 Non-pressure chronic ulcer of unspecified part of right lower leg with unspecified severity; L97.929 Non-pressure chronic ulcer of unspecified part of left lower leg with unspecified severity; L03.116 Cellulitis of left lower limb; S81.812A Laceration without foreign body, left lower leg, initial encounter; E66.01 Morbid (severe) obesity due to excess calories; I83.10 Varicose veins of unspecified lower extremity with inflammation; G47.33 Obstructive sleep apnea (adult) (pediatric); I48.2 Chronic atrial fibrillation; I50.9 Heart failure, unspecified; I89.0 Lymphedema, not elsewhere classified; X58.XXXA Exposure to other specified factors, initial encounter; Z83.6 Family history of other diseases of the respiratory system; Z80.9 Family history of malignant neoplasm, unspecified; Z85.820 Personal history of malignant melanoma of skin; Z79.01 Long term (current) use of anticoagulants; Z85.038 Personal history of other malignant neoplasm of large intestine; Y93.89 Activity, other specified; Y92.89 Other specified places as the place of occurrence of the external cause; Y99.8 Other external cause status
CPT/HCPCS: 36415; 36600; 73560-TC; 80048; 80053; 81000-TC; 82550-TC; 82803-TC; 83880; 84484; 85025; 85610-TC; 85730-TC; 87081; 87086; 87186-TC; 94660; 94760; 96360; 96372; 97110-GP; 97116-GP; 97530-GP; 99285; G0378; J0696; J1170; J2001; J7030; J7060